=== PATIENT | female | born 1965 | race Caucasian/White ===

== ENCOUNTER → 2016-05-17 | Outpatient (CLI) | payer OTHER, BC | END | disposition home or self-care (01) | LOC: RAD 09:30 | PROVIDERS: ATTEND Family Medicine | DX: M54.2 Cervicalgia (principal) | CPT/HCPCS: 70360 ==

== ENCOUNTER → 2016-06-15 | Outpatient (CLI) | payer BC, OTHER ==
[~2016-06-15] MED LIST: OMNIPAQUE 350 MG/ML, 100ML BOTTLE ONE
== END | disposition home or self-care (01) ==
LOC: CFH 07:57
PROVIDERS: ATTEND Family Medicine
DX: M54.2 Cervicalgia (principal); R10.9 Unspecified abdominal pain
CPT/HCPCS: 70491; 76700; Q9967

== ENCOUNTER → 2016-09-12 | Outpatient (CLI) | payer OTHER, BC ==
[~2016-09-12] MED LIST changes: +ALBU8.5H3 INH; +BACL-19 PO; +CYAN10005 PO; +DILT60CA PO; +FEXO60TA24 PO; +FLUT9.9S NS; +LEVO137T2 PO; +LYSI500T PO; +NAPR500T3 PO; -OMNIPAQUE 350 MG/ML, 100ML BOTTLE ONE; +methyl folate PO
== END ==
LOC: STAR 13:59
PROVIDERS: ATTEND Orthopaedic Surgery
DX: Z02.9 Encounter for administrative examinations, unspecified (principal)

== ENCOUNTER 2016-09-21 06:56 | Day surgery (SDC) | payer OTHER, BC ==
[~2016-09-21] VITALS: Ht 162.6 cm; Wt 77.0 kg
[~2016-09-21 06:56] MED LIST changes: +BUPIVACAINE/PF 0.25% ONE; +EPINEPHRINE 1 MG/ML, 1ML ONE
[2016-09-21 07:35] VITALS: BP 117/76
[2016-09-21] MEDS ORDERED: LACTATED RINGERS 1,000 ML IV SCH (07:35)
[2016-09-21] MEDS ORDERED: MIDAZOLAM 1 MG/ML, 2ML ONE (07:52)
[2016-09-21] MEDS ORDERED: FENTANYL PF 250 MCG/5ML ONE (07:52)
[2016-09-21] MEDS ORDERED: LIDOCAINE 1%, 2ML SQ PRN (08:00)
[2016-09-21] MEDS ORDERED: CEFAZOLIN 1,000 MG ONE (09:06)
[2016-09-21] MEDS ORDERED: PROPOFOL 10 MG/ML, 20ML ONE (09:06)
[2016-09-21] MEDS ORDERED: DEXAMETHASONE 4 MG/ML, 1ML ONE (09:06)
[2016-09-21] MEDS ORDERED: PROPOFOL 10 MG/ML, 50ML ONE (09:06)
[2016-09-21] MEDS ORDERED: ONDANSETRON 2MG/ML, 2ML ONE (09:06)
[2016-09-21] MEDS ORDERED: SUCCINYLCHOLINE 20 MG/ML, 10ML ONE (09:06)
[2016-09-21] MEDS ORDERED: BUPIVACAINE/PF 0.25% INFIL ONE (09:23)
[2016-09-21] MEDS ORDERED: PROMETHAZINE 25 MG/ML, 1ML IV PRN (10:00)
[2016-09-21] MEDS ORDERED: METOCLOPRAMIDE 5 MG/ML, 2ML IV PRN (10:00)
[2016-09-21] MEDS ORDERED: ACETAMINOPHEN 325 MG TABLET PO PRN (10:00)
[2016-09-21] MEDS ORDERED: KETOROLAC 30 MG/1 ML IV PRN (10:00)
[2016-09-21] MEDS ORDERED: HYDROmorphone 1 MG/ML, 1ML IV PRN (10:00)
[2016-09-21] MEDS ORDERED: MEPERIDINE/PF 25MG/0.5ML IVPush PRN (10:00)
[2016-09-21] MEDS ORDERED: ONDANSETRON 2MG/ML, 2ML IVPush PRN (10:00)
[2016-09-21] MEDS ORDERED: OXYcodone 5 MG/5 ML ORAL.SOL UDC PO PRN (10:00)
[2016-09-21] MEDS ORDERED: FENTANYL PF 100 MCG/2ML ONE (10:24)
[2016-09-21] MEDS ORDERED: OXYcodone 5 MG/5 ML ORAL.SOL UDC ONE (10:24)
[2016-09-21] MEDS ORDERED: ACETAMINOPHEN 650 MG/20.3 ML UDC ONE (10:24)
[2016-09-21] MEDS ORDERED: KETOROLAC 30 MG/1 ML ONE (10:25)
[2016-09-21] MEDS: FENTANYL PF 100 MCG/2ML IV PRN ×2 (10:27→10:45)
== END 2016-09-21 12:00 ==
LOC: OUT 06:56
PROVIDERS: ATTEND Orthopaedic Surgery
DX: M75.112 Incomplete rotator cuff tear or rupture of left shoulder, not specified as traumatic (principal); M75.42 Impingement syndrome of left shoulder; M19.012 Primary osteoarthritis, left shoulder; S43.432A Superior glenoid labrum lesion of left shoulder, initial encounter; J45.909 Unspecified asthma, uncomplicated; X58.XXXA Exposure to other specified factors, initial encounter; Y93.89 Activity, other specified; Y92.89 Other specified places as the place of occurrence of the external cause; Y99.8 Other external cause status; Z88.5 Allergy status to narcotic agent; Z91.018 Allergy to other foods; Z86.39 Personal history of other endocrine, nutritional and metabolic disease
CPT/HCPCS: 29823; 29826; J0171; J0330; J0690; J1100; J1885; J2250; J2405; J2704; J3010; J3490; J7120

== ENCOUNTER → 2017-01-05 | Outpatient (CLI) | payer BC, OTHER ==
[~2017-01-05] MED LIST changes: -ALBU8.5H3 INH; +ALBU8.5H8 INH; -BUPIVACAINE/PF 0.25% ONE; -EPINEPHRINE 1 MG/ML, 1ML ONE; -NAPR500T3 PO; +NAPR500T4 PO; +OMNIPAQUE 350 MG/ML, 100ML BOTTLE ONE
== END | disposition home or self-care (01) ==
LOC: CFH 12:35
PROVIDERS: ATTEND Otolaryngology
DX: R22.1 Localized swelling, mass and lump, neck (principal); Z98.890 Other specified postprocedural states
CPT/HCPCS: 70491; Q9967

== ENCOUNTER → 2017-02-10 | Outpatient (CLI) | payer BC, OTHER ==
[~2017-02-10] MED LIST changes: -OMNIPAQUE 350 MG/ML, 100ML BOTTLE ONE
== END | disposition home or self-care (01) ==
LOC: CFH 13:10
PROVIDERS: ATTEND Nurse Practitioner Family
DX: Z13.820 Encounter for screening for osteoporosis (principal); M81.0 Age-related osteoporosis without current pathological fracture; M85.9 Disorder of bone density and structure, unspecified; Z78.0 Asymptomatic menopausal state
CPT/HCPCS: 77080

== ENCOUNTER → 2017-02-14 | Outpatient (CLI) | payer OTHER, BC | END | disposition home or self-care (01) | LOC: CFH 14:56 | PROVIDERS: ATTEND Family Medicine | DX: M79.89 Other specified soft tissue disorders (principal) ==

== ENCOUNTER → 2017-04-05 | Outpatient (CLI) | payer OTHER, BC | END | disposition home or self-care (01) | LOC: CFH 13:47 | PROVIDERS: ATTEND Family Medicine | DX: N64.4 Mastodynia (principal); R92.2 Inconclusive mammogram; Z80.3 Family history of malignant neoplasm of breast | CPT/HCPCS: 76642; 77066 ==

== ENCOUNTER → 2017-05-30 | Outpatient (CLI) | payer OTHER, BC ==
[~2017-05-30] MED LIST changes: +GADOBUTROL 7.5 MMOL/7.5 ML PFS ONE; +NAPR-685 PO; -NAPR500T4 PO
== END | disposition home or self-care (01) ==
LOC: CFH 07:38
PROVIDERS: ATTEND Family Medicine
DX: M70.62 Trochanteric bursitis, left hip (principal)
CPT/HCPCS: 73720; A9585

== ENCOUNTER → 2018-05-14 | Outpatient (CLI) | payer MEDICARE, BC ==
[~2018-05-14] MED LIST changes: -GADOBUTROL 7.5 MMOL/7.5 ML PFS ONE
== END | disposition home or self-care (01) ==
LOC: CFH 12:36
PROVIDERS: ATTEND Family Medicine
DX: Z12.31 Encounter for screening mammogram for malignant neoplasm of breast (principal); Z87.19 Personal history of other diseases of the digestive system; Z85.828 Personal history of other malignant neoplasm of skin
CPT/HCPCS: 77063; 77067

== ENCOUNTER 2018-06-04 08:52 | Outpatient (CLI) | payer MEDICARE, BC ==
[2018-06-04] MEDS ORDERED: GADOBUTROL 10 MMOL/10 ML VIAL ONE (09:30)
== END 2018-06-04 23:59 | disposition home or self-care (01) ==
LOC: CFH 08:52 → EDSTATUS 09:30 → CFH 23:59
PROVIDERS: ATTEND Family Medicine
DX: K76.89 Other specified diseases of liver (principal)
CPT/HCPCS: 74183; A9585

== ENCOUNTER → 2019-02-01 | Outpatient (CLI) | payer MEDICARE, BC ==
[~2019-02-01] MED LIST changes: +CYAN-27 PO; -CYAN10005 PO; -LYSI500T PO; +LYSI500T8 PO
== END | disposition home or self-care (01) ==
LOC: CFH 12:38
PROVIDERS: ATTEND Nurse Practitioner Family
DX: M85.88 Other specified disorders of bone density and structure, other site (principal)
CPT/HCPCS: 77080

== ENCOUNTER 2019-06-24 13:39 | Outpatient (CLI) | payer MEDICARE, BC | END 2019-06-24 23:59 | disposition home or self-care (01) | LOC: RAD 13:39 | PROVIDERS: ATTEND Otolaryngology | DX: R22.1 Localized swelling, mass and lump, neck (principal); F45.8 Other somatoform disorders | CPT/HCPCS: 74220 ==